=== PATIENT | male | born 1970 | race African-American/Black ===

== ENCOUNTER 2017-02-24 15:45 | Emergency (ER) | payer OTHER ==
[2017-02-24] MEDS ORDERED: DIPH/PERTUSS(ACELL)/TETANUS VAC/PF 0.5 ML SYR (>=10YO) IM ONE (16:49)
--- NOTE | 2017-02-24 16:55 | ER Document Report ---
HPI - HPI Pain Level: 2 Notes: Patient is a 46-year-old male who presents the ED complaining of a very small cut to his posterior distal second digit on the right hand earlier today. Patient states that he scratched it off of a latrice metal object. Patient states that he called the [place] [facility] who recommended he gets his tetanus updated right away so patient came to the ED for his tetanus shot. Patient states that he has no other concerns or complaints. Patient states that he can barely see scratch on his finger. He denies any pain or discomfort or bleeding. He denies any drug allergies or significant past medical history otherwise. Patient cannot remember the last time he had his tetanus vaccine. Denies any headache, fever, head injury, neck pain, URI, sore throat, chest pain, palpitations, syncope, cough, shortness of breath, wheeze, dyspnea, abdominal pain, nausea/vomiting/diarrhea, urinary retention, dysuria, hematuria, numbness/ tingling, muscle cramping, muscle paralysis/weakness, or rash. - ROS Notes: REVIEW OF SYSTEMS: CONSTITUTIONAL : Denies fever, chills, or sweats. Denies recent illness. EENT: Denies eye, ear, throat, or mouth pain or symptoms. Denies nasal or sinus congestion or discharge. Denies throat, tongue, or mouth swelling or difficulty swallowing. CARDIOVASCULAR: Denies chest pain. Denies palpitations or racing or irregular heart beat. Denies ankle edema. RESPIRATORY: Denies cough, cold, or chest congestion. Denies shortness of breath, difficulty breathing, or wheezing. GASTROINTESTINAL: Denies abdominal pain or distention. Denies nausea, vomiting , or diarrhea. Denies blood in vomitus, stools, or per rectum. Denies black, tarry stools. Denies constipation. GENITOURINARY: Denies difficulty urinating, painful urination, burning, frequency, blood in urine, or discharge. MUSCULOSKELETAL: Denies back or neck pain or stiffness. Denies joint pain or swelling. SKIN: see hpi NEUROLOGICAL: Denies confusion or altered mental status. Denies passing out or loss of consciousness. Denies dizziness or lightheadedness. Denies headache. Denies weakness or paralysis or loss of use of either side. Denies problems with gait or speech. Denies sensory loss, numbness, or tingling. ALL OTHER SYSTEMS REVIEWED AND NEGATIVE. Dictation was performed using [employer] voice recognition software - DERM Skin Color: Normal Past Medical History - Social History Smoking Status: Never Smoker Family History: Reviewed & Not Pertinent - Past Medical History Cardiac Medical History: Reports: Hx Hypertension Renal/ Medical History: Denies: Hx Peritoneal Dialysis GI Medical History: Reports: Hx Gastroesophageal Reflux Disease Past Surgical History: Reports: Hx Orthopedic Surgery - knee 09 - Immunizations Hx Diphtheria, Pertussis, Tetanus Vaccination: Yes Vertical Provider Document - CONSTITUTIONAL Agree With Documented VS: Yes Notes: PHYSICAL EXAMINATION: GENERAL: Well-appearing, well-nourished and in no acute distress. NECK: Normal range of motion, supple without lymphadenopathy LUNGS: Breath sounds clear to auscultation bilaterally and equal. No wheezes rales or rhonchi. HEART: Regular rate and rhythm without murmurs, rubs, gallops. Musculoskeletal: Rt hand/fingers: FROM to passive/active. Strength 5+/5. N/V intact. Non-tender. Extremities: No cyanosis, clubbing, or edema b/l. Peripheral pulses 2+. Capillary refill less than 3 seconds. NEUROLOGICAL: Cranial nerves grossly intact. Normal speech, normal gait. Normal sensory, motor exams PSYCH: Normal mood, normal affect. SKIN: there is a very small 0.1cm 'scratch'/abrasion to the dorsal distal 2nd digit b/w the PIP/DIP joint of the right hand. Non-tender. No bleeding. No erythema, ecchymosis, deformity, or streaks noted. - INFECTION CONTROL TRAVEL OUTSIDE OF THE [place] IN LAST 30 DAYS: No - RESPIRATORY O2 Sat by Pulse Oximetry: 98 Course - Re-evaluation Re-evalutation: 02/24/17 16:53 Patient is an afebrile, well-hydrated, 46-year-old male who presents the ED for his tetanus immunization status post scratched his finger from a latrice metal object. Vitals are stable. PE otherwise unremarkable at this time. The wound does not warrant any laceration repair at this time. Patient advised to keep the wound clean with soap and water along with triple antibiotic ointment. He is to monitor closely for any signs of infection. Low suspicion/risk for any fracture, and nec fasciitis, deep space infection, sepsis, fracture, or other systemic emergent condition at this time. Patient is aware that his condition can change from initial presentation and he needs to monitor symptoms closely and seek medical attention if any acute changes. Recheck with your PCM this week. Return to the ED with any worsening/concerning symptoms otherwise as reviewed discharge. Patient is in agreement. - Vital Signs Vital signs: Temp Pulse Resp BP Pulse Ox 97.6 F 118 H 18 145/95 H 98 02/24/17 15:49 02/24/17 15:49 02/24/17 15:49 02/24/17 15:49 02/24/17 15:49 Discharge - Discharge Clinical Impression: Finger abrasion Qualifiers: Encounter type: initial encounter Qualified Code(s): S60.419A - Abrasion of unspecified finger, initial encounter Condition: Stable Disposition: HOME, SELF-CARE Instructions: Tetanus Immunization Given ([facility]), Soap Cleansing ([facility]), Antibiotic Ointment Protection ([facility]) Additional Instructions: Ice/moist heat if needed Tylenol/ibuprofen as needed F/u with your PCP in 2-3 days for a recheck Consider consult(s) with Orthopedics/physical therapy for ongoing/worsening symptoms Return to the ED with any worsening symptoms and/or development of fever, headache, chest pain, palpitations, syncope, shortness of breath, trouble breathing, abdominal pain, n/v/d, muscle weakness/paralysis, numbness/tingling, swelling, redness, or other worsening symptoms that are concerning to you. Forms: Elevated Blood Pressure Referrals: [facility] [Provider Group] - Follow up as needed
[2017-02-24 17:29] VITALS: BP 136/94
== END 2017-02-24 17:25 | disposition home or self-care (01) ==
LOC: ER 15:45
DX: S60.419A Abrasion of unspecified finger, initial encounter (principal); W45.8XXA Other foreign body or object entering through skin, initial encounter
CPT/HCPCS: 90471; 90715; 99283

== ENCOUNTER 2017-04-19 13:03 | Emergency (ER) | payer OTHER ==
--- NOTE | 2017-04-19 13:34 | ER Document Report ---
ED Medical Screen (RME) - General Chief Complaint: Shortness Of Breath Stated Complaint: SHORT OF BREATH, CHEST DISCOMFORT Time Seen by Provider: 04/19/17 13:31 Notes: Patient states that he has a history of anxiety but is usually relieved with Ativan. He states today his heart is racing and he is having substernal chest discomfort. He states he feels "like there is something in my chest". He denies any cough or cold symptoms. He has had no vomiting. He does feel short of breath. He denies any previous history of DVTs or PEs. No recent long plane rides or surgeries. He states he did take a car trip to the [facility] 2 weeks ago. He has had no leg swelling. He states the symptoms started this morning. TRAVEL OUTSIDE OF THE [place] IN LAST 30 DAYS: No - Related Data Allergies/Adverse Reactions: No Known Allergies Allergy (Verified 04/19/17 13:10) Past Medical History - Social History Frequency of alcohol use: Social Drug Abuse: Marijuana - Past Medical History Cardiac Medical History: Reports: Hx Hypertension Renal/ Medical History: Denies: Hx Peritoneal Dialysis GI Medical History: Reports: Hx Gastroesophageal Reflux Disease Past Surgical History: Reports: Hx Orthopedic Surgery - knee 09 - Immunizations Hx Diphtheria, Pertussis, Tetanus Vaccination: Yes Physical Exam - Vital signs Vitals: Temp Pulse BP Pulse Ox 98.6 F 118 H 152/100 H 100 04/19/17 13:08 04/19/17 13:08 04/19/17 13:08 04/19/17 13:08 Course - Vital Signs Vital signs: Temp Pulse Resp BP Pulse Ox 98.6 F 118 H 152/100 H 100 04/19/17 13:08 04/19/17 13:08 04/19/17 13:08 04/19/17 13:08
[2017-04-19] MEDS ORDERED: ASPIRIN 325 MG TABLET PO ONE (14:09)
[2017-04-19 14:13] LABS: ABSOLUTE EOSINOPHILS # (AUTO) 0.2 10^3/uL (0.0-0.6); ABSOLUTE LYMPHOCYTES (AUTO) 1.7 10^3/uL (0.5-4.7); ABSOLUTE MONOCYTES (AUTO) 0.3 10^3/uL (0.1-1.4); ABSOLUTE NEUT (AUTO) 5.1 10^3/uL (1.7-8.2); BASOPHILS % (AUTO) 0.6 % (0-2); EOSINOPHILS % (AUTO) 2.1 % (0-6); HEMATOCRIT 44.6 % (37.9-51.0); HEMOGLOBIN 14.7 g/dL (13.5-17.0); HGB HCT DIFFERENCE -0.5; LYMPHOCYTES % (AUTO) 23.2 % (13-45); MEAN CORPUSCULAR HEMOGLOBIN 28.6 pg (27.0-33.4); MEAN CORPUSCULAR HGB CONC 33.1 g/dL (32.0-36.0); MEAN CORPUSCULAR VOLUME 86 fl (80-97); MONOCYTES % (AUTO) 4.6 % (3-13); RED BLOOD COUNT 5.16 10^6/uL (4.35-5.55); RED CELL DISTRIBUTION WIDTH 13.2 % (11.5-14.0); SEGMENTED NEUTROPHILS % (AUTO) 69.5 % (42-78); WHITE BLOOD COUNT 7.3 10^3/uL (4.0-10.5)
[2017-04-19 14:27] LABS: ALANINE AMINOTRANSFERASE 41 U/L (21-72); ALBUMIN 4.8 g/dL (3.5-5.0); ALKALINE PHOSPHATASE 103 U/L (38-126); ANION GAP 15 (5-19); ASPARTATE AMINO TRANSFERASE 23 U/L (17-59); BILIRUBIN,DIRECT 0.4 mg/dL (0.0-0.4); BLOOD UREA NITROGEN 9 mg/dL (7-20); CALCIUM 9.9 mg/dL (8.4-10.2); CARBON DIOXIDE 26 mmol/L (22-30); CHLORIDE 102 mmol/L (98-107); CREATININE RESULT 0.96 mg/dL (0.52-1.25); GLUCOSE 96 mg/dL (75-110); POTASSIUM 3.5 mmol/L (3.6-5.0); SODIUM 142.6 mmol/L (137-145)
--- NOTE | 2017-04-19 14:31 | ER Document Report ---
ED General - General Chief Complaint: Shortness Of Breath Stated Complaint: SHORT OF BREATH, CHEST DISCOMFORT Time Seen by Provider: 04/19/17 13:31 Mode of Arrival: Ambulatory Information source: Patient TRAVEL OUTSIDE OF THE [place] IN LAST 30 DAYS: No - HPI Patient complains to provider of: SOB Onset: Yesterday Onset/Duration: Gradual Quality of pain: No pain Associated symptoms: None Exacerbated by: Denies Relieved by: Denies Similar symptoms previously: No Recently seen / treated by doctor: No Notes: Patient is a 46-year-old male with history of hypertension. Over the last couple of days, patient feels like he is having increasing shortness of breath. Patient states he feels like there is something in his chest that he cannot get out. No fevers, chills, sweats. No chest pain. He did have a recent prolonged car trip. No leg swelling or leg pain. No prior history of DVT or PE. - Related Data Allergies/Adverse Reactions: No Known Allergies Allergy (Verified 04/19/17 13:10) Past Medical History - General Information source: Patient - Social History Smoking Status: Never Smoker Frequency of alcohol use: Social Drug Abuse: Marijuana Family History: Reviewed & Not Pertinent - Past Medical History Cardiac Medical History: Reports: Hx Hypertension Renal/ Medical History: Denies: Hx Peritoneal Dialysis GI Medical History: Reports: Hx Gastroesophageal Reflux Disease Past Surgical History: Reports: Hx Orthopedic Surgery - knee 09 - Immunizations Hx Diphtheria, Pertussis, Tetanus Vaccination: Yes Review of Systems - Review of Systems Respiratory: Short of breath -: Yes All other systems reviewed and negative Physical Exam - Vital signs Vitals: Temp Pulse BP Pulse Ox 98.6 F 118 H 152/100 H 100 04/19/17 13:08 04/19/17 13:08 04/19/17 13:08 04/19/17 13:08 Interpretation: Normal, Tachycardic - General General appearance: Appears well, Alert - HEENT Head: Normocephalic, Atraumatic Eyes: Normal Pupils: PERRL - Respiratory Respiratory status: No respiratory distress Chest status: Nontender Breath sounds: Normal Chest palpation: Normal - Cardiovascular Rhythm: Regular, Tachycardia Heart sounds: Normal auscultation Murmur: No - Abdominal Inspection: Normal Distension: No distension Bowel sounds: Normal Tenderness: Nontender Organomegaly: No organomegaly - Extremities General upper extremity: Normal inspection, Nontender, Normal color, Normal ROM , Normal temperature General lower extremity: Normal inspection, Nontender, Normal color, Normal ROM , Normal temperature, Normal weight bearing. No: Abraham's sign Calf: Normal, Nontender - Neurological Neuro grossly intact: Yes Cognition: Normal Orientation: AAOx4 Mike Coma Scale Eye Opening: Spontaneous Mike Coma Scale Verbal: Oriented [place] Coma Scale Motor: Obeys Commands [place] Coma Scale Total: 15 Speech: Normal Motor strength normal: LUE, RUE, LLE, RLE Sensory: Normal - Skin Skin Temperature: Warm Skin Moisture: Dry Skin Color: Normal Course - Re-evaluation Re-evalutation: 04/19/17 15:15 Emergency department workup is complete and is unremarkable. I have discussed results with the patient. There is no indication for admission or further workup at this time. Encouraged patient to follow-up with his primary care provider. - Vital Signs Vital signs: Temp Pulse Resp BP Pulse Ox 98.6 F 118 H 152/100 H 100 04/19/17 13:08 04/19/17 13:08 04/19/17 13:08 04/19/17 13:08 - Laboratory Result Diagrams: 04/19/17 13:55 04/19/17 13:55 Laboratory results interpreted by me: 04/19/17 13:55 Potassium 3.5 L 04/19/17 14:57 Laboratory studies reviewed and are all normal. - Diagnostic Test Radiology reviewed: Reports reviewed Radiology results interpreted by me: 04/19/17 14:58 Chest x-ray: Negative per radiologist 04/19/17 15:15 CTA chest read as negative by radiologist. - EKG Interpretation by Wy EKG shows normal: Sinus rhythm Rate: Normal Rhythm: NSR [place]/QRS: No: Right axis deviation, Left axis deviation Additional EKG results interpreted by me: 04/19/17 14:31 EKG: Nothing acute Discharge - Discharge Clinical Impression: Dyspnea Disposition: HOME, SELF-CARE Instructions: Dyspnea, Nonspecific ([facility]) Additional Instructions: Continuing on your medications. Follow-up with your primary care provider. Return to the emergency department if worse of any other problems.
--- NOTE | 2017-04-19 14:33 | RADIOLOGY REPORT (SQ) ---
EXAM DESCRIPTION: CHEST PA/LAT COMPLETED DATE/TIME: 04/19/2017 2:11 pm REASON FOR STUDY: cp COMPARISON: 07/06/2011, 09/01/2008 EXAM PARAMETERS: NUMBER OF VIEWS: two views TECHNIQUE: Digital Frontal and Lateral radiographic views of the chest acquired. RADIATION DOSE: NA LIMITATIONS: none FINDINGS: LUNGS AND PLEURA: No opacities, masses or pneumothorax. No pleural effusion. MEDIASTINUM AND HILAR STRUCTURES: No masses or contour abnormalities. HEART AND VASCULAR STRUCTURES: Heart normal size. No evidence for failure. BONES: No acute findings. HARDWARE: None in the chest. OTHER: No other significant finding. IMPRESSION: NO SIGNIFICANT RADIOGRAPHIC FINDING IN THE CHEST. TECHNICAL DOCUMENTATION: JOB ID: [id number] [employer]- All Rights Reserved
--- NOTE | 2017-04-19 15:05 | RADIOLOGY REPORT (SQ) ---
EXAM DESCRIPTION: CTA CHEST COMPLETED DATE/TIME: 04/19/2017 2:54 pm REASON FOR STUDY: tachy, chest pain COMPARISON: CT chest 06/15/2009 Chest films 04/19/2017, 07/06/2011 TECHNIQUE: CT scan of the chest performed using helical scanning technique with dynamic intravenous contrast injection. Images reviewed with lung, soft tissue and bone windows. Reconstructed coronal and sagittal MPR images reviewed. Additional 3 dimensional post-processing performed to develop Maximal Intensity Projection images (OK P). All images stored on PACS. All CT scanners at this facility use dose modulation, iterative reconstruction, and/or weight based d osing when appropriate to reduce radiation dose to as low as reasonably achievable (ALARA). [facility]: Dose Right [facility]: CareDose [facility]: Dose Right [facility]: Teradose 4D [facility]: [employer] CONTRAST TYPE AND DOSE: contrast/concentration: Isovue 370.00 mg/ml; Total Contrast Delivered: 86.0 ml; Total Saline Delivered: 100.0 ml Contrast bolus optimized for the pulmonary arteries. Not diagnostic for the aorta. RENAL FUNCTION: Creatinine 0.96 RADIATION DOSE: Up-to-date CT equipment and radiation dose reduction techniques were employed. CTDIv ol: 16.5 - 36.2 mGy. DLP: 1489 mGy-cm. . LIMITATIONS: None. FINDINGS: LUNGS AND PLEURA: No masses, infiltrates, pneumothorax. No pleural effusions, calcificati ons. AORTA AND GREAT VESSELS: No aneurysm. Contrast bolus not optimized for the aorta. HEART: No pericardial effusion. No significant coronary artery calcifications. PULMONARY ARTERIES: No emboli visualized in the main pulmonary arteries or the segmental branches. HILAR AND MEDIASTINAL STRUCTURES: No identified masses or abnormal nodes. HARDWARE: None in the chest. UPPER ABDOMEN: No significant findings. Limited exam. THYROID AND OTHER SOFT TISSUES: Mild gynecomastia BONES: No acute or significant finding. 3D MIPS: Confirm above findings. OTHER: No other significant finding. IMPRESSION: NORMAL CTA OF THE CHEST. NO PULMONARY EMBOLI. COMMENT: Quality ID # [id number]: Final reports with documentation of one or more dose reduction techniques (e.g., Automated exposure control, adjustment of the mA and/or kV according to patient size, use of iterative reconstruction technique) TECHNICAL DOCUMENTATION: JOB ID: [id number] [employer]- All Rights Reserved
[2017-04-19 16:05] VITALS: BP 142/74
--- NOTE | 2017-04-19 16:23 | EKG REPORT ---
SEVERITY:- NORMAL ECG - SINUS RHYTHM : Confirmed by: Radha Song 19-Apr-2017 16:23:02
== END 2017-04-19 15:30 | disposition home or self-care (01) ==
LOC: ER 13:03
DX: R06.02 Shortness of breath (principal); R09.89 Other specified symptoms and signs involving the circulatory and respiratory systems; I10 Essential (primary) hypertension; R00.0 Tachycardia, unspecified
CPT/HCPCS: 36415; 71020; 71275; 80053; 84484; 85025; 93005; 93010; 99285

== ENCOUNTER 2017-11-02 15:33 | Emergency (ER) | payer OTHER ==
[2017-11-02] MEDS ORDERED: NORMAL SALINE 1000 ML 1,000 ML IV ONE (15:58)
[2017-11-02] MEDS ORDERED: ONDANSETRON HCL INJ/PF 4 MG/2 ML SDV IV ONE (15:58)
[2017-11-02] MEDS ORDERED: PROCHLORPERAZINE EDISYLATE INJ 10 MG/2 ML VIAL IV ONE (15:58)
--- NOTE | 2017-11-02 15:58 | ER Document Report ---
ED Medical Screen (RME) - General Chief Complaint: Headache Stated Complaint: HEADACHE Time Seen by Provider: 11/02/17 15:57 TRAVEL OUTSIDE OF THE [place] IN LAST 30 DAYS: No - HPI Notes: 11/02/17 15:57 History of Chiari malformation with a headache ongoing for a month [facility] - Related Data Allergies/Adverse Reactions: No Known Allergies Allergy (Verified 04/19/17 13:10) Past Medical History - Social History Chew tobacco use (# tins/day): No Frequency of alcohol use: Occasional Drug Abuse: None - Past Medical History Cardiac Medical History: Reports: Hx Hypertension Renal/ Medical History: Denies: Hx Peritoneal Dialysis GI Medical History: Reports: Hx Gastroesophageal Reflux Disease Past Surgical History: Reports: Hx Orthopedic Surgery - knee - Immunizations Hx Diphtheria, Pertussis, Tetanus Vaccination: Yes Review of Systems - Review of Systems Neurological/Psychological: Headaches Physical Exam - Vital signs Vitals: Temp Pulse Resp BP Pulse Ox 98.7 F 108 H 18 132/88 H 98 11/02/17 15:46 11/02/17 15:46 11/02/17 15:46 11/02/17 15:46 11/02/17 15:46 - Respiratory Respiratory status: No respiratory distress, Retractions Breath sounds: Normal Chest palpation: Normal Course - Vital Signs Vital signs: Temp Pulse Resp BP Pulse Ox 98.7 F 108 H 18 132/88 H 98 11/02/17 15:46 11/02/17 15:46 11/02/17 15:46 11/02/17 15:46 11/02/17 15:46
[2017-11-02 16:29] LABS: ABSOLUTE BASOPHILS # (AUTO) 0.1 10^3/uL (0.0-0.2); ABSOLUTE EOSINOPHILS # (AUTO) 0.2 10^3/uL (0.0-0.6); ABSOLUTE LYMPHOCYTES (AUTO) 2.3 10^3/uL (0.5-4.7); ABSOLUTE MONOCYTES (AUTO) 0.5 10^3/uL (0.1-1.4); ABSOLUTE NEUT (AUTO) 5.8 10^3/uL (1.7-8.2); BASOPHILS % (AUTO) 1.3 % (0-2); EOSINOPHILS % (AUTO) 2.1 % (0-6); HEMATOCRIT 45.7 % (37.9-51.0); HEMOGLOBIN 14.9 g/dL (13.5-17.0); LYMPHOCYTES % (AUTO) 25.5 % (13-45); MEAN CORPUSCULAR HEMOGLOBIN 28.3 pg (27.0-33.4); MEAN CORPUSCULAR HGB CONC 32.5 g/dL (32.0-36.0); MEAN CORPUSCULAR VOLUME 87 fl (80-97); MONOCYTES % (AUTO) 5.7 % (3-13); PLATELET COUNT 190 10^3/uL (150-450); RED BLOOD COUNT 5.26 10^6/uL (4.35-5.55); RED CELL DISTRIBUTION WIDTH 13.5 % (11.5-14.0); SEGMENTED NEUTROPHILS % (AUTO) 65.4 % (42-78); TOTAL CELLS COUNTED % (AUTO) 100 %; WHITE BLOOD COUNT 8.9 10^3/uL (4.0-10.5)
[2017-11-02] MEDS ORDERED: DIPHENHYDRAMINE HCL 50 MG/ML VIAL IV ONE ×2 (16:37→17:26)
--- NOTE | 2017-11-02 17:09 | ER Document Report ---
ED Headache - General Chief Complaint: Headache Stated Complaint: HEADACHE Time Seen by Provider: 11/02/17 15:57 Mode of Arrival: Ambulatory Information source: Patient Notes: Patient presents complaining of headache off and on for the past month. Patient presently denies any headache pain stating that he received medication in triage area. Patient denies any nausea or vomiting. Patient denies fever. Patient states that he did have photophobia and phonophobia when he was having a headache but denies of symptoms at this time. Patient does state that he feels a little restless like he has to keep moving. She states this is a new symptom since he received headache medication in triage. Patient states that he does have a history of a Chiari malformation that he was diagnosed with years ago but was never required to have any type of surgical procedure. TRAVEL OUTSIDE OF THE [place] 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 denies: Confusion, Dizzy, Fever, Nausea/ vomiting, Neck pain Exacerbated by: Light, Noise Similar symptoms previously: Yes Recently seen / treated by doctor: No - Related Data Allergies/Adverse Reactions: No Known Allergies Allergy (Verified 11/02/17 16:39) Past Medical History - General Information source: Patient - Social History Smoking Status: Never Smoker Chew tobacco use (# tins/day): No Frequency of alcohol use: Occasional Drug Abuse: None Occupation: [employer] Family History: Reviewed & Not Pertinent Patient has suicidal ideation: No Patient has homicidal ideation: No - Past Medical History Cardiac Medical History: Reports: Hx Hypertension Renal/ Medical History: Denies: Hx Peritoneal Dialysis GI Medical History: Reports: Hx Gastroesophageal Reflux Disease Psychiatric Medical History: Reports: Hx Post Traumatic Stress Disorder Past Surgical History: Reports: Hx Orthopedic Surgery - knee 09 - Immunizations Hx Diphtheria, Pertussis, Tetanus Vaccination: Yes Review of Systems - Review of Systems Constitutional: No symptoms reported. denies: Fever, Recent illness EENT: No symptoms reported Cardiovascular: No symptoms reported. denies: Chest pain Respiratory: No symptoms reported Gastrointestinal: No symptoms reported. denies: Nausea, Vomiting Genitourinary: No symptoms reported Male Genitourinary: No symptoms reported Musculoskeletal: No symptoms reported. denies: Back pain, Neck pain Skin: No symptoms reported Hematologic/Lymphatic: No symptoms reported Neurological/Psychological: Headaches. denies: Confusion, Weakness Physical Exam - Vital signs Vitals: Temp Pulse Resp BP Pulse Ox 98.7 F 108 H 18 132/88 H 98 11/02/17 15:46 11/02/17 15:46 11/02/17 15:46 11/02/17 15:46 11/02/17 15:46 - General General appearance: Appears well, Alert In distress: None - HEENT Head: Normocephalic, Atraumatic Eyes: Normal Conjunctiva: Normal Extraocular movements intact: Yes Eyelashes: Normal Pupils: PERRL Nasal: Normal Mouth/Lips: Normal Mucous membranes: Normal Neck: Normal, Supple. No: Lymphadenopathy, Meningismus - Respiratory Respiratory status: No respiratory distress Chest status: Nontender Breath sounds: Normal Chest palpation: Normal - Cardiovascular Rhythm: Regular Heart sounds: S1 appreciated, S2 appreciated Murmur: No - Back Back: Normal, Nontender. No: Vertebra tenderness - Extremities General upper extremity: Normal inspection, Normal strength General lower extremity: Normal inspection, Normal strength - Neurological Neuro grossly intact: Yes Cognition: Normal [place] Coma Scale Eye Opening: Spontaneous [place] Coma Scale Verbal: Oriented Mike Coma Scale Motor: Obeys Commands [place] Coma Scale Total: 15 Speech: Normal Cranial nerves: Normal. No: Facial palsy Cerebellar coordination: Normal. No: Gait ataxia Motor strength normal: LUE, RUE, LLE, RLE - Psychological Associated symptoms: Normal affect, Normal mood - Skin Skin Temperature: Warm Skin Moisture: Dry Skin Color: Normal Course - Re-evaluation Re-evalutation: 11/02/17 17:26 Patient continues feeling restless additional Benadryl ordered. Patient reports headache pain is improved at this time. 11/02/17 18:06 Patient continues to deny any headache pain at this time. CT scan reviewed, no acute findings. The patient presents with headache without signs of DORMITORY SUPERVISOR bleed, stroke, infection, or other serious etiology. The patient is neurologically intact. Given the extremely low risk of these diagnoses further testing and evaluation for these possibilities does not appear to be indicated at this time. The patient has been instructed to return if the symptoms worsen or change in any way. - Vital Signs Vital signs: Temp Pulse Resp BP Pulse Ox 98 F 112 H 20 131/85 H 98 11/02/17 18:26 11/02/17 18:26 11/02/17 18:26 11/02/17 18:26 11/02/17 18:26 - Laboratory Result Diagrams: 11/02/17 16:14 11/02/17 17:15 Laboratory results interpreted by me: Labs- Entire Visit 11/02/17 11/02/17 11/02/17 16:14 16:14 17:15 WBC 8.9 RBC 5.26 Hgb 14.9 Hct 45.7 MCV 87 MCH 28.3 MCHC 32.5 RDW 13.5 Plt Count 190 Seg Neutrophils % 65.4 Lymphocytes % 25.5 Monocytes % 5.7 Eosinophils % 2.1 Basophils % 1.3 Absolute Neutrophils 5.8 Absolute Lymphocytes 2.3 Absolute Monocytes 0.5 Absolute Eosinophils 0.2 Absolute Basophils 0.1 Sodium Cancelled 144.1 Potassium Cancelled 3.7 Chloride Cancelled 102 Carbon Dioxide Cancelled 29 Anion Gap Cancelled 13 BUN Cancelled 11 Creatinine Cancelled 1.00 Est GFR ( Amer) Cancelled > 60 Est GFR (Non-Af Amer) Cancelled > 60 Glucose Cancelled 96 Calcium Cancelled 9.7 - Diagnostic Test Radiology reviewed: Reports reviewed Discharge - Discharge Clinical Impression: Head ache Qualifiers: Headache type: unspecified Headache chronicity pattern: unspecified pattern Intractability: not intractable Qualified Code(s): R51 - Headache Condition: Stable Disposition: HOME, SELF-CARE Instructions: Intravenous Compazine for Headaches ([facility]), Use of Diphenhydramine , Headache ([facility]) Additional Instructions: Return immediately for any new or worsening symptoms Followup with your primary care provider, call tomorrow to make a followup appointment Prescriptions: Butalb/Acetaminophen/Caffeine [Fioricet (50-325-40 mg) Tablet] 1 - 2 tab PO Q4H #14 each Forms: Return to Work Referrals: MACY BLANCO MD [Primary Care Provider] - Follow up tomorrow
--- NOTE | 2017-11-02 17:11 | RADIOLOGY REPORT (SQ) ---
EXAM DESCRIPTION: CT HEAD WITHOUT COMPLETED DATE/TIME: 11/02/2017 5:00 pm REASON FOR STUDY: Chiari malformation headache COMPARISON: MRI 01/04/2011 TECHNIQUE: Axial images acquired through the brain without intravenous contrast. Images reviewed wi th bone, brain and subdural windows. Additional sagittal and coronal reconstructions were generated. Images stored on PACS. All CT scanners at this facility use dose modulation, iterative reconstruction, and/or weight based d osing when appropriate to reduce radiation dose to as low as reasonably achievable (ALARA). [facility]: Dose Right [facility]: CareDose [facility]: Dose Right [facility]: Teradose 4D [facility]: Smart View3 RADIATION DOSE: CT Rad equipment meets quality standard of care and radiation dose reduction techniq ues were employed. CTDIvol: 53.2 mGy. DLP: 1044 mGy-cm. mGy. LIMITATIONS: None. FINDINGS: VENTRICLES: Normal size and contour. CEREBRUM: No masses. No hemorrhage. No midline shift. No evidence for acute infarction. Normal gra y/white matter differentiation. No areas of low density in the white matter. CEREBELLUM: No masses. No hemorrhage. No alteration of density. No evidence for acute infarction. The cerebellar tonsils are low lying. EXTRAAXIAL SPACES: No fluid collections. No masses. ORBITS AND GLOBE: No intra- or extraconal masses. Normal contour of globe without masses. CALVARIUM: No fracture. PARANASAL SINUSES: No fluid or mucosal thickening. SOFT TISSUES: No mass or hematoma. OTHER: The sella is slightly prominent with no enlargement of the pituitary. IMPRESSION: 1. No acute intracranial imaging findings. 2. Low-lying cerebellar tonsils unchanged. 3. Empty sella unchanged. EVIDENCE OF ACUTE STROKE: NO. COMMENT: Quality ID # [id number]: Final reports with documentation of one or more dose reduction techniques (e.g., Automated exposure control, adjustment of the mA and/or kV according to patient size, use of iterative reconstruction technique) TECHNICAL DOCUMENTATION: JOB ID: [id number] [employer]- All Rights Reserved Reading location - IP/workstation name: [email or web address]
[2017-11-02 17:49] LABS: ANION GAP 13 (5-19); BLOOD UREA NITROGEN 11 mg/dL (7-20); CALCIUM 9.7 mg/dL (8.4-10.2); CARBON DIOXIDE 29 mmol/L (22-30); CHLORIDE 102 mmol/L (98-107); GLUCOSE 96 mg/dL (75-110); POTASSIUM 3.7 mmol/L (3.6-5.0); SODIUM 144.1 mmol/L (137-145)
[2017-11-02 18:28] VITALS: BP 131/85
== END 2017-11-02 18:41 | disposition home or self-care (01) ==
LOC: ER 15:33
DX: R51 Headache (principal); R45.1 Restlessness and agitation; H53.149 Visual discomfort, unspecified
CPT/HCPCS: 96376; 99284; 96361; 96374; 96375; 36415; 85025; 80048; 70450; J1200; J0780; J2405; J7030

== ENCOUNTER 2019-04-28 21:35 | Emergency (ER) | payer OTHER ==
--- NOTE | 2019-04-28 21:46 | ER Document Report ---
ED Medical Screen (RME) - General Chief Complaint: Shortness Of Breath Stated Complaint: SHORTNESS OF BREATH Time Seen by Provider: 04/28/19 21:42 Primary Care Provider: MACY BLANCO MD [Primary Care Provider] - Follow up as needed Mode of Arrival: Ambulatory Information source: Patient Notes: 48-year-old male presents to ED for complaint of shortness of breath. He states he has a history of reflux and was supposed to be on medicine and took himself off. He states he has high blood pressure and he took his medicine amlodipine and hydrochlorothiazide for his blood pressure and then 8 when he came here night his blood pressure is high. Patient states he does not smoke sometimes he drinks between once a day to once a week but smoked more than a beer today and denies use of drugs. Patient states he has PTSD and anxiety I have greeted and performed a rapid initial assessment of this patient. A comprehensive ED assessment and evaluation of the patient, analysis of test results and completion of medical decision making process will be conducted by an additional ED providers. TRAVEL OUTSIDE OF THE [place] IN LAST 30 DAYS: No - Related Data Allergies/Adverse Reactions: No Known Allergies Allergy (Verified 11/02/17 16:39) Past Medical History - Past Medical History Cardiac Medical History: Reports: Hx Hypertension Renal/ Medical History: Denies: Hx Peritoneal Dialysis GI Medical History: Reports: Hx Gastroesophageal Reflux Disease Psychiatric Medical History: Reports: Hx Post Traumatic Stress Disorder Past Surgical History: Reports: Hx Orthopedic Surgery - knee 09 - Immunizations Hx Diphtheria, Pertussis, Tetanus Vaccination: Yes Doctor's Discharge - Discharge Referrals: MACY BLANCO MD [Primary Care Provider] - Follow up as needed
[2019-04-28 22:29] LABS: ABSOLUTE EOSINOPHILS # (AUTO) 0.2 10^3/uL (0.0-0.6); ABSOLUTE LYMPHOCYTES (AUTO) 2.7 10^3/uL (0.5-4.7); ABSOLUTE MONOCYTES (AUTO) 0.5 10^3/uL (0.1-1.4); ABSOLUTE NEUT (AUTO) 5.6 10^3/uL (1.7-8.2); BASOPHILS % (AUTO) 0.4 % (0-2); EOSINOPHILS % (AUTO) 2.2 % (0-6); HEMATOCRIT 44.9 % (37.9-51.0); HEMOGLOBIN 14.6 g/dL (13.5-17.0); LYMPHOCYTES % (AUTO) 30.4 % (13-45); MEAN CORPUSCULAR HEMOGLOBIN 28.7 pg (27.0-33.4); MEAN CORPUSCULAR HGB CONC 32.6 g/dL (32.0-36.0); MEAN CORPUSCULAR VOLUME 88 fl (80-97); MONOCYTES % (AUTO) 5.4 % (3-13); PLATELET COUNT 196 10^3/uL (150-450); RED BLOOD COUNT 5.11 10^6/uL (4.35-5.55); RED CELL DISTRIBUTION WIDTH 14.1 % (11.5-14.0); SEGMENTED NEUTROPHILS % (AUTO) 61.6 % (42-78); TOTAL CELLS COUNTED % (AUTO) 100 %
[2019-04-28 22:44] LABS: ALBUMIN 4.5 g/dL (3.5-5.0); ALKALINE PHOSPHATASE 80 U/L (38-126); ANION GAP 10 (5-19); ASPARTATE AMINO TRANSFERASE 26 U/L (17-59); BILIRUBIN,DIRECT 0.1 mg/dL (0.0-0.4); BILIRUBIN,TOTAL 0.6 mg/dL (0.2-1.3); BLOOD UREA NITROGEN 11 mg/dL (7-20); CALCIUM 9.9 mg/dL (8.4-10.2); CARBON DIOXIDE 27 mmol/L (22-30); CHLORIDE 104 mmol/L (98-107); CREATINE KINASE 148 U/L (55-170); GLUCOSE 106 mg/dL (75-110); POTASSIUM 3.9 mmol/L (3.6-5.0); TOTAL PROTEIN 7.7 g/dL (6.3-8.2)
[2019-04-28 22:57] LABS: TROPONIN I < 0.012 ng/mL
--- NOTE | 2019-04-28 22:57 | RADIOLOGY REPORT (SQ) ---
EXAM DESCRIPTION: XR CHEST 2 VIEWS COMPLETED DATE/TME: 04/28/2019 21:48 CLINICAL HISTORY: 48 years, Male, short of breath COMPARISON: 04/19/2017 chest NUMBER OF VIEWS: 2 TECHNIQUE: 2 view chest LIMITATIONS: None. FINDINGS: Heart size normal. Lungs clear. No pneumothorax IMPRESSION: Negative chest copyright 2010 [employer]- All Rights Reserved
--- NOTE | 2019-04-28 23:07 | ER Document Report ---
ED General - General Chief Complaint: Shortness Of Breath Stated Complaint: SHORTNESS OF BREATH Time Seen by Provider: 04/28/19 21:42 Primary Care Provider: MACY BLANCO MD [NO LOCAL MD] - Follow up as needed Mode of Arrival: Ambulatory TRAVEL OUTSIDE OF THE [place] IN LAST 30 DAYS: No - HPI Notes: Patient is a 48-year-old male presents emergency department for evaluation of shortness of breath with exertion. He has a history of high blood pressure, a alexa reflux, anxiety. He states he went out to breakfast, then went to moving boxes. He was recently , his and he are moving in together. He states he became extremely short of breath while doing this. He admits that he is not very active. 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 He is gained a significant amount of weight. He states he started reading information on the Internet about what might be causing the symptoms, and he became concerned so he presents to the emergency department for further evaluation. He follows closely with his primary care physician. He was recently told his cholesterol is down. Is not any medication for it. His blood pressure usually runs in the 117/70 range at home. He denies any associated chest tightness or chest pain with this, but does admit that he had some chest tightness after eating in the past. He states he is always associated that with his anxiety. He is never had a stress test or heart catheterization before. - Related Data Allergies/Adverse Reactions: No Known Allergies Allergy (Verified 11/02/17 16:39) Home Medications: Amlodipine 10 mg daily, hydrochlorothiazide 12 and half milligrams daily, Ativan 1 to 2 mg as needed Past Medical History - General Information source: Patient - Social History Smoking Status: Never Smoker Chew tobacco use (# tins/day): No Frequency of alcohol use: Social Drug Abuse: None Family History: Reviewed & Not Pertinent, CAD - Father in his 60s, Other - Alzheimer's Patient has suicidal ideation: No Patient has homicidal ideation: No - Past Medical History Cardiac Medical History: Reports: Hx Hypertension Renal/ Medical History: Denies: Hx Peritoneal Dialysis GI Medical History: Reports: Hx Gastroesophageal Reflux Disease Psychiatric Medical History: Reports: Hx Anxiety, Hx Post Traumatic Stress Disorder Past Surgical History: Reports: Hx Orthopedic Surgery - knee 09 - Immunizations Hx Diphtheria, Pertussis, Tetanus Vaccination: Yes Review of Systems - Review of Systems Constitutional: No symptoms reported EENT: No symptoms reported Cardiovascular: No symptoms reported Respiratory: See HPI Gastrointestinal: No symptoms reported Genitourinary: No symptoms reported Musculoskeletal: No symptoms reported Skin: No symptoms reported Neurological/Psychological: No symptoms reported Physical Exam - Vital signs Vitals: Temp Pulse Resp BP Pulse Ox 97.9 F 116 H 18 144/95 H 99 04/28/19 21:41 04/28/19 21:41 04/28/19 21:41 04/28/19 21:41 04/28/19 21:41 - Notes Notes: Is a very pleasant 48-year-old male, obese, lying in bed comfortably, no acute distress. Vital signs reviewed, please refer to chart. Head is normocephalic, atraumatic. Pupils equal round, reactive to light. Neck is supple without meningismus. Heart is regular rate and rhythm. Lungs are clear to auscultation bilaterally. Abdomen is soft, nontender, normoactive bowel sounds throughout. Extremities without cyanosis, clubbing. Posterior calves are nontender. Peripheral pulses are equal. Skin is warm and dry. Patient is awake, alert, neurological exam is nonfocal. Course - Re-evaluation Re-evalutation: 04/28/19 23:08 Patient is a 48-year-old male presents emergency department for evaluation of d yspnea with exertion. We talked at length about his risk factors. He was placed on a hotel night auditor, EKG and laboratory investigations were obtained. Patient remained stable throughout the course of his stay, did not have any symptoms. We talked about addressing his risk factors, including weight loss, dietary changes. He voiced understanding to this. I discussed with him the fact that I could rule out any signs of acute coronary syndrome at this time, but he would need further evaluation to rule out the presence or absence of coronary artery disease. He voiced understanding to this. I encouraged him to follow-up with his primary care doctor and discuss potential stress testing. He is amenable to this plan. He remained stable at this time, we will continue to monitor. 04/29/19 00:14 Patient remained asymptomatic throughout the course of his stay. His symptoms were in the morning, so given the timing, his negative cardiac enzymes essentially ruling out for acute coronary syndrome. I do strongly suspect just simple deconditioning in this patient but again recommend stress test. He is amenable to this plan. He is to return to the ED with worsening. - Vital Signs Vital signs: Temp Pulse Resp BP Pulse Ox 97.6 F 116 H 18 122/70 97 04/29/19 00:48 04/28/19 21:41 04/29/19 00:48 04/29/19 00:01 04/29/19 00:01 - Laboratory Result Diagrams: 04/28/19 21:55 04/28/19 21:55 Laboratory results interpreted by me: 04/28/19 21:55 RDW 14.1 H - Diagnostic Test Radiology reviewed: Reports reviewed Radiology results interpreted by me: 04/28/19 23:09 Chest X-Ray 04/28/19 21:48 IMPRESSION: Negative chest copyright 2011 [employer]- All Rights Reserved - EKG Interpretation by Me Additional EKG results interpreted by me: 04/28/19 23:09 Sinus mechanism with rate of 97 bpm. Normal axis and intervals, no acute ST changes concerning for ischemia or infarction. Discharge - Discharge Clinical Impression: Dyspnea on exertion Condition: Stable Disposition: HOME, SELF-CARE Instructions: Dyspnea, Nonspecific ([facility]) Additional Instructions: No clear cause was found for your symptoms today. Your heart work-up here was found to be unremarkable. I would advise you to consider a treadmill stress test with nuclear imaging, you can discuss this with your primary care provider. Continue your medications at home as prescribed. If you develop worsening or new concerning symptoms of any sort, return immediately to the emergency department for evaluation. Referrals: MACY BLANCO MD [NO LOCAL MD] - Follow up as needed
[2019-04-29 00:31] VITALS: BP 122/70
--- NOTE | 2019-04-29 01:06 | EKG REPORT ---
SEVERITY:- NORMAL ECG - SINUS RHYTHM : Confirmed by: Jj Yadav MD 29-Apr-2019 01:06:01
== END 2019-04-29 01:25 | disposition home or self-care (01) ==
LOC: ER 21:35
DX: R06.00 Dyspnea, unspecified (principal); R06.02 Shortness of breath; E66.9 Obesity, unspecified; I10 Essential (primary) hypertension
CPT/HCPCS: 36415; 71046; 80053; 82550; 82553; 83690; 84484; 85025; 93005; 93010; 99285

== ENCOUNTER 2019-05-02 18:15 | Emergency (ER) | payer OTHER ==
--- NOTE | 2019-05-02 18:35 | ER Document Report ---
ED Medical Screen (RME) - General Chief Complaint: Shortness Of Breath Stated Complaint: BREATHING ISSUES Time Seen by Provider: 05/02/19 18:30 Primary Care Provider: LAYLA ALMANZA [Primary Care Provider] - Follow up as needed Mode of Arrival: Ambulatory Information source: Patient Notes: 48-year-old male presented to ED for shortness of breath since he was seen here on Tuesday. He states he moved into a house that has a lot of pet dander and he has a cat at work. He states he does not know if he is allergic to cats or what is going on he states he was in here on Tuesday for similar symptoms and it has not gotten any better. He states he did has GERD real bad, anxiety issues, PTSD, high blood pressure, and osteoarthritis. He states the breathing issues are not getting any better. I have greeted and performed a rapid initial assessment of this patient. A comprehensive ED assessment and evaluation of the patient, analysis of test results and completion of medical decision making process will be conducted by an additional ED providers. TRAVEL OUTSIDE OF THE [place] IN LAST 30 DAYS: No - Related Data Allergies/Adverse Reactions: No Known Allergies Allergy (Verified 11/02/17 16:39) Past Medical History - Past Medical History Cardiac Medical History: Reports: Hx Hypertension Renal/ Medical History: Denies: Hx Peritoneal Dialysis GI Medical History: Reports: Hx Gastroesophageal Reflux Disease Psychiatric Medical History: Reports: Hx Anxiety, Hx Post Traumatic Stress Disorder Past Surgical History: Reports: Hx Orthopedic Surgery - knee 09 - Immunizations Hx Diphtheria, Pertussis, Tetanus Vaccination: Yes Physical Exam - Vital signs Vitals: Temp Pulse Resp BP Pulse Ox 98.5 F 113 H 16 145/126 H 100 05/02/19 18:19 05/02/19 18:19 05/02/19 18:19 05/02/19 18:19 05/02/19 18:19 Course - Vital Signs Vital signs: Temp Pulse Resp BP Pulse Ox 98.5 F 113 H 16 145/126 H 100 05/02/19 18:19 05/02/19 18:19 05/02/19 18:19 05/02/19 18:19 05/02/19 18:19 Doctor's Discharge - Discharge Referrals: ARCHIE,LAYLA [Primary Care Provider] - Follow up as needed
[2019-05-02 19:20] LABS: ABSOLUTE BASOPHILS # (AUTO) 0.1 10^3/uL (0.0-0.2); ABSOLUTE EOSINOPHILS # (AUTO) 0.2 10^3/uL (0.0-0.6); ABSOLUTE LYMPHOCYTES (AUTO) 2.4 10^3/uL (0.5-4.7); ABSOLUTE MONOCYTES (AUTO) 0.5 10^3/uL (0.1-1.4); ABSOLUTE NEUT (AUTO) 5.2 10^3/uL (1.7-8.2); BASOPHILS % (AUTO) 0.7 % (0-2); EOSINOPHILS % (AUTO) 2.3 % (0-6); HEMATOCRIT 45.7 % (37.9-51.0); HEMOGLOBIN 15.1 g/dL (13.5-17.0); LYMPHOCYTES % (AUTO) 28.1 % (13-45); MEAN CORPUSCULAR HEMOGLOBIN 28.9 pg (27.0-33.4); MEAN CORPUSCULAR HGB CONC 32.9 g/dL (32.0-36.0); MEAN CORPUSCULAR VOLUME 88 fl (80-97); MONOCYTES % (AUTO) 6.3 % (3-13); PLATELET COUNT 185 10^3/uL (150-450); RED BLOOD COUNT 5.21 10^6/uL (4.35-5.55); RED CELL DISTRIBUTION WIDTH 13.8 % (11.5-14.0); SEGMENTED NEUTROPHILS % (AUTO) 62.6 % (42-78); TOTAL CELLS COUNTED % (AUTO) 100 %; WHITE BLOOD COUNT 8.4 10^3/uL (4.0-10.5)
[2019-05-02 19:38] LABS: ALBUMIN 4.9 g/dL (3.5-5.0); ALKALINE PHOSPHATASE 93 U/L (38-126); ANION GAP 11 (5-19); ASPARTATE AMINO TRANSFERASE 26 U/L (17-59); BILIRUBIN,DIRECT 0.1 mg/dL (0.0-0.4); BILIRUBIN,TOTAL 0.6 mg/dL (0.2-1.3); BLOOD UREA NITROGEN 10 mg/dL (7-20); CALCIUM 9.9 mg/dL (8.4-10.2); CARBON DIOXIDE 28 mmol/L (22-30); CHLORIDE 102 mmol/L (98-107); GLUCOSE 96 mg/dL (75-110); POTASSIUM 3.8 mmol/L (3.6-5.0); TOTAL PROTEIN 8.3 g/dL (6.3-8.2)
--- NOTE | 2019-05-02 23:36 | EKG REPORT ---
SEVERITY:- NORMAL ECG - SINUS RHYTHM : Confirmed by: Radha Song 02-May-2019 23:36:03
--- NOTE | 2019-05-02 23:54 | ER Document Report ---
ED General - General Mode of Arrival: Ambulatory TRAVEL OUTSIDE OF THE [place] IN LAST 30 DAYS: No <PHILOMENA ALCANTAR - Last Filed: 05/03/19 04:02> <GLORIA LEWIS - Last Filed: 05/03/19 05:16> - General Chief Complaint: Shortness Of Breath Stated Complaint: BREATHING ISSUES Time Seen by Provider: 05/02/19 18:30 [facility] Care Provider: [facility] [Primary [facility]] - Follow up as needed - HPI Notes: He says really his symptoms are mostly associated with this upper epigastric pain he feels is noticeable when laying supine and especially exacerbated by eating after of 30 minutes. He does say it is when he feels this sort of tightness in his chest that his breath seems short. He has had a intermittent cough, no fevers chills sweats. He denies any leg swelling he denies any exertional component to his shortness of breath and he is at times able to lie flat without any difficulty in breathing, it is more when he is laying flat and is postprandial he notes his symptoms. He says he was diagnosed with "GERD" remotely and was prescribed ranitidine, but but says he was never scoped. He denies any other NSAID use any melena hematochezia. Denies any vomiting. No radiation of his pain or anthony abdominal pain or distention. He denies any palpitations or passing out or near passing out. Reviewed recent ED visit note more thoroughly they noted he had endorsed significant weight gain but also that he did report dyspnea on exertion. (PHILOMENA ALCANTAR) - Related Data Allergies/Adverse Reactions: No Known Allergies Allergy (Verified 11/02/17 16:39) Past Medical History - General Information source: Patient - Social History Smoking Status: Former Smoker Frequency of alcohol use: None Drug Abuse: None Family History: Reviewed & Not Pertinent, CAD - Father in his 60s, Other - Alzheimer's Patient has suicidal ideation: No Patient has homicidal ideation: No - Past Medical History Cardiac Medical History: Reports: Hx Hypertension Renal/ Medical History: Denies: Hx Peritoneal Dialysis GI Medical History: Reports: Hx Gastroesophageal Reflux Disease Psychiatric Medical History: Reports: Hx Anxiety, Hx Post Traumatic Stress Disorder Past Surgical History: Reports: Hx Orthopedic Surgery - knee 09 - Immunizations Hx Diphtheria, Pertussis, Tetanus Vaccination: Yes <PHILOMENA ALCANTAR - Last Filed: 05/03/19 04:02> Physical Exam <PHILOMENA ALCANTAR - Last Filed: 05/03/19 04:02> - Vital signs Vitals: Temp Pulse Resp BP Pulse Ox 98.5 F 113 H 16 145/126 H 100 05/02/19 18:19 05/02/19 18:19 05/02/19 18:19 05/02/19 18:19 05/02/19 18:19 Notes: Reviewed his heart rates over the last visits in the last few months he is always around 115 heart rate. (PHILOMENA ALCANTAR) Course - Laboratory Result Diagrams: 05/02/19 18:55 05/02/19 18:55 <PHILOMENA ALCANTAR - Last Filed: 05/03/19 04:02> - Laboratory Result Diagrams: 05/02/19 18:55 05/02/19 18:55 <GLORIA LEWIS - Last Filed: 05/03/19 05:16> - Vital Signs Vital signs: Temp Pulse Resp BP Pulse Ox 97.7 F 78 16 136/85 H 100 05/02/19 23:14 05/02/19 23:14 05/02/19 23:14 05/02/19 23:14 05/02/19 23:14 - Laboratory Laboratory results interpreted by me: 05/02/19 18:55 Total Protein 8.3 H - EKG Interpretation by Me Additional EKG results interpreted by me: 05/02/19 23:53 Reviewed EKG done today compared to prior few days ago on the second today is normal sinus rhythm rate 96 compared to prior there are no changes in the T wave or ST segments no other voltage changes or aberrancy all intervals are within normal limits. (PHILOMENA ALCANTAR) - Transfer of Care Notes: 05/03/19 02:58 Patient continued to have no evidence of tachycardia or hypoxia comfortable on room air no tachypnea. He has no known risk factors for VTE. No current evidence of any extremity DVT. (PHILOMENA ALCANTAR) Discharge <PHILOMENA ALCANTAR - Last Filed: 05/03/19 04:02> <GLORIA LEWIS - Last Filed: 05/03/19 05:16> - Discharge Clinical Impression: Epigastric pain GERD (gastroesophageal reflux disease) Qualifiers: Esophagitis presence: esophagitis presence not specified Qualified Code(s): K21.9 - Gastro-esophageal reflux disease without esophagitis Disposition: HOME, SELF-CARE Prescriptions: Inhaler, Assist Devices [Aerochamber Mv] 1 inhaler IH Q6HP PRN 30 Days #1 inhaler PRN Reason: Pantoprazole Sodium [Protonix [address] Tablet] 20 mg PO QAM 14 Days #14 tablet.dr Albuterol Sulfate [Proventil 0.5% Neb 2.5 mg/0.5 ml Vial.neb] 2.5 mg NEB Q4 PRN #1 vial.neb PRN Reason: See Label Comments Referrals: [facility] [Primary Care Provider] - Follow up as needed
[2019-05-03] MEDS ORDERED: IPRATROPIUM/ALBUTEROL 0.5-2.5 MG/3 ML AMPUL NEB PRN (01:06)
--- NOTE | 2019-05-03 01:42 | RADIOLOGY REPORT (SQ) ---
EXAM DESCRIPTION: XR CHEST 2 VIEWS COMPLETED DATE/TME: 05/03/2019 01:04 CLINICAL HISTORY: 48 years, Male, rhonchi RLL COMPARISON: X-ray chest 04/28/2019 NUMBER OF VIEWS: TECHNIQUE: LIMITATIONS: None. FINDINGS: No evidence of pulmonary infiltrate or pleural effusion. The heart and mediastinum are unremarkable. Pulmonary vascularity appears normal. There is no significant change, as compared with the prior x-ray(s). IMPRESSION: No acute finding. copyright 2010 [employer]- All Rights Reserved
[2019-05-03 05:20] VITALS: BP 119/64
== END 2019-05-03 04:55 | disposition home or self-care (01) ==
LOC: ER 18:15
DX: R10.13 Epigastric pain (principal); K21.9 Gastro-esophageal reflux disease without esophagitis; R06.02 Shortness of breath; I10 Essential (primary) hypertension
CPT/HCPCS: 93005; 94640; 99284; 36415; 85025; 80053; 84484; 85379; 83880; 71046; 93010; J7620

== ENCOUNTER 2020-05-14 21:37 | Emergency (ER) | payer OTHER ==
[2020-05-14] MEDS ORDERED: LIDOCAINE 2% VISCOUS SOLN 15 ML UDCUP PO ONE (22:05)
[2020-05-14] MEDS ORDERED: MAG HYDROX/AL HYDROX/SIMETH SUSP 30 ML UDCUP PO ONE (22:05)
[2020-05-14] MEDS ORDERED: METOCLOPRAMIDE HCL ORAL SOLN 10 MG/10 ML UDCUP PO ONE (22:05)
--- NOTE | 2020-05-14 22:12 | ER Document Report ---
ED Cardiac - General Chief Complaint: Chest Pressure Stated Complaint: CHEST PRESSURE Time Seen by Provider: 05/14/20 21:53 Primary Care Provider: ARCHIE,LAYLA [Primary Care Provider] - Follow up as needed Notes: CHIEF COMPLAINT: Chest pressure intermittently for 5 days HPI: History is obtained from the patient and his spouse. A 49-year-old male with history of hypertension, sleep apnea who is on CPAP at night also history of reflux disease who stopped his medications 2 to 3 months ago presenting for intermittent midsternal pressure sensation that will last for 10 to 15 minutes at a time over the last 5 days. 2-3 episodes a day. States that it is changed with eating and drinking. Certain foods make it worse certain foods make it better. Patient states that it is a pressure sensation, went into the back t onight with very slight shortness of breath which caused them to call EMS tonight to have it evaluated. 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 ROS: See HPI - all other systems were reviewed and are otherwise negative Constitutional: no fever Eyes: no drainage, no blurred vision ENT: no runny nose, no sore throat Cardiovascular: + chest pain Resp: + SOB, no cough GI: no vomiting, no diarrhea, no abdominal pain : no dysuria Integumentary: no rash Allergy: no hives Musculoskeletal: no extremity pain or swelling Neurological: no numbness/tingling, no weakness MEDICATIONS: I agree with the patient medications as charted by the RN. ALLERGIES: I agree with the allergies as charted by the RN. PAST MEDICAL HISTORY/PAST SURGICAL HISTORY: Reviewed and agree as charted by RN. SOCIAL HISTORY: Reviewed and agree as charted by RN. FAMILY HISTORY: No significant familial comorbid conditions directly related to patient complaint EXAM: Reviewed vital signs as charted by RN. CONSTITUTIONAL: Alert and oriented and responds appropriately to questions. Well-appearing; well-nourished HEAD: Normocephalic; atraumatic EYES: PERRL; Conjunctivae clear, sclerae non-icteric ENT: normal nose; no rhinorrhea; moist mucous membranes; pharynx without lesions noted, no uvula edema or deviation, no tonsillar hypertrophy, phonation normal NECK: Supple without meningismus; non-tender; no cervical lymphadenopathy, no masses CARD: RRR; no murmurs, no clicks, no rubs, no gallops; symmetric distal pulses RESP: Normal chest excursion without splinting or tachypnea; breath sounds clear and equal bilaterally; no wheezes, no rhonchi, no rales, pulse oximetry 99% on room air not hypoxic ABD/GI: Normal bowel sounds; non-distended; soft, non-tender, no rebound, no guarding; no palpable organomegaly or masses. BACK: The back appears normal and is non-tender to palpation, there is no CVA tenderness EXT: Normal ROM in all joints; non-tender to palpation; no cyanosis, no effusions, no edema SKIN: Normal color for age and race; warm; dry; good turgor; no acute lesions noted NEURO: Moves all extremities equally; Motor and sensory function intact PSYCH: The patient's mood and manner are appropriate. Grooming and personal hygiene are appropriate. MDM: 49-year-old male presenting with chest pressure intermittent for the last 5 days tonight's episode began around 7 PM. Slight radiation into the back none to the neck or arms with very slight shortness of breath tonight causing him to come to the emergency department. Has a history of bad reflux and stopped his medications several months ago. Patient states that he did not take any medications for symptoms over the last few days. Certain foods do make the discomfort better or worse. Initial screening cardiac labs obtained on the patient he is fairly low risk for ACS. Will give GI cocktail. If initial screening labs are negative anticipate holding patient for second troponin TRAVEL OUTSIDE OF THE [place] IN LAST 30 DAYS: No - Related Data Allergies/Adverse Reactions: prochlorperazine [From Compazine] Allergy (Verified 05/14/20 22:14) Past Medical History - Social History Smoking Status: Unknown if Ever Smoked Family History: Reviewed & Not Pertinent, CAD - Father in his 60s, Other - Alzheimer's - Past Medical History Cardiac Medical History: Reports: Hx Hypertension Denies: Hx Atrial Fibrillation, Hx Coronary Artery Disease Pulmonary Medical History: Denies: Hx Asthma, Hx Bronchitis, Hx COPD, Hx Pneumonia Renal/ Medical History: Denies: Hx Peritoneal Dialysis GI Medical History: Reports: Hx Gastroesophageal Reflux Disease Psychiatric Medical History: Reports: Hx Anxiety, Hx Post Traumatic Stress Disorder Past Surgical History: Reports: Hx Orthopedic Surgery - knee 09 - Immunizations Hx Diphtheria, Pertussis, Tetanus Vaccination: Yes Physical Exam - Vital signs Vitals: Resp Pulse Ox 20 99 05/14/20 21:44 05/14/20 21:44 Course - Re-evaluation Re-evalutation: 05/14/20 22:53 EKG shows a sinus tachycardia with a ventricular rate of 110. Left atrial abnormality borderline R wave progression in the anterior leads a borderline EKG. ME 200, QT 312, QTc 423. Interpreted by emergency department physicians 05/14/20 23:45 Patient's pain completely resolved with GI cocktail. Initial screening troponin is negative. Heart score is 1. Will obtain second troponin but I suspect this is gastric in nature 05/15/20 01:37 No recurrent chest discomfort. Will discharge home to follow-up with gastroenterology and cardiology - Vital Signs Vital signs: Temp Pulse Resp BP Pulse Ox 98.1 F 13 116/95 H 96 05/14/20 21:45 05/15/20 01:01 05/15/20 01:00 05/15/20 01:01 - Laboratory Result Diagrams: 05/14/20 21:58 05/14/20 21:58 Laboratory results interpreted by me: 05/14/20 05/14/20 21:58 21:58 Hgb 13.4 L Sodium 135.9 L Glucose 154 H Discharge - Discharge Clinical Impression: Chest pain Qualifiers: Chest pain type: other chest pain Qualified Code(s): R07.89 - Other chest pain; R07.8 - Other chest pain Condition: Stable Disposition: HOME, SELF-CARE Instructions: Chest Pain of Unclear Cause ([facility]) Additional Instructions: Take the Protonix as prescribed avoid greasy or spicy foods. Follow-up both with gastroenterology and cardiology for further evaluation and treatment call for appointment Prescriptions: Pantoprazole Sodium [Protonix [address] Tablet] 20 mg PO DAILY #30 tablet.dr Referrals: [facility] [Primary Care Provider] - Follow up as needed SRINI LEMUS MD [ACTIVE STAFF] - Follow up as needed MAC GUADARRAMA MD [ACTIVE PROVISIONAL STAFF] - Follow up as needed
[2020-05-14 22:20] LABS: ABSOLUTE BASOPHILS # (AUTO) 0.1 10^3/uL (0.0-0.2); ABSOLUTE EOSINOPHILS # (AUTO) 0.2 10^3/uL (0.0-0.6); ABSOLUTE LYMPHOCYTES (AUTO) 2.5 10^3/uL (0.5-4.7); ABSOLUTE MONOCYTES (AUTO) 0.4 10^3/uL (0.1-1.4); ABSOLUTE NEUT (AUTO) 6.7 10^3/uL (1.7-8.2); EOSINOPHILS % (AUTO) 2.4 % (0-6); HEMATOCRIT 41.1 % (37.9-51.0); HEMOGLOBIN 13.4 g/dL (13.5-17.0); LYMPHOCYTES % (AUTO) 25.2 % (13-45); MEAN CORPUSCULAR HEMOGLOBIN 28.5 pg (27.0-33.4); MEAN CORPUSCULAR HGB CONC 32.6 g/dL (32.0-36.0); MEAN CORPUSCULAR VOLUME 88 fl (80-97); MONOCYTES % (AUTO) 4.1 % (3-13); PLATELET COUNT 184 10^3/uL (150-450); RED CELL DISTRIBUTION WIDTH 13.7 % (11.5-14.0); SEGMENTED NEUTROPHILS % (AUTO) 67.3 % (42-78); TOTAL CELLS COUNTED % (AUTO) 100 %
[2020-05-14 22:40] LABS: ALBUMIN 4.2 g/dL (3.5-5.0); ALKALINE PHOSPHATASE 78 U/L (38-126); ANION GAP 9 (5-19); ASPARTATE AMINO TRANSFERASE 30 U/L (17-59); BILIRUBIN,DIRECT 0.1 mg/dL (0.0-0.4); BILIRUBIN,TOTAL 0.6 mg/dL (0.2-1.3); BLOOD UREA NITROGEN 12 mg/dL (7-20); CALCIUM 9.3 mg/dL (8.4-10.2); CARBON DIOXIDE 25 mmol/L (22-30); CHLORIDE 102 mmol/L (98-107); GLUCOSE 154 mg/dL (75-110); POTASSIUM 3.8 mmol/L (3.6-5.0); TOTAL PROTEIN 7.2 g/dL (6.3-8.2)
--- NOTE | 2020-05-14 23:00 | RADIOLOGY REPORT (SQ) ---
EXAM DESCRIPTION: Site: CHEST SINGLE VIEW RP: XR CHEST 1 VIEW CLINICAL HISTORY: 49 years Male; chest pain; COMPARISON: 04/19/2017 FINDINGS: Lungs: Lungs are clear, with no focal infiltrate, pneumothorax, or pleural effusion. Mediastinum: Mediastinum is within normal limits for this positioning. Bones: Bony structures are unremarkable. IMPRESSION: 1. No acute pulmonary findings.
[2020-05-15 01:48] VITALS: BP 116/72
--- NOTE | 2020-05-16 13:26 | EKG REPORT ---
SEVERITY:- BORDERLINE ECG - SINUS TACHYCARDIA PROBABLE LEFT ATRIAL ABNORMALITY BORDERLINE R WAVE PROGRESSION, ANTERIOR LEADS : Confirmed by: Roxi Cornelius MD 16-May-2020 13:25:48
== END 2020-05-15 01:47 | disposition home or self-care (01) ==
LOC: ER 21:37
DX: R07.89 Other chest pain (principal); I10 Essential (primary) hypertension; R06.02 Shortness of breath; R00.0 Tachycardia, unspecified; G47.30 Sleep apnea, unspecified; Z99.89 Dependence on other enabling machines and devices; Z87.19 Personal history of other diseases of the digestive system; Z88.8 Allergy status to other drugs, medicaments and biological substances; Z82.49 Family history of ischemic heart disease and other diseases of the circulatory system
CPT/HCPCS: 93005; 99285; 36415; 85025; 80053; 84484; 71045; 93010; J3490